=== PATIENT | male | born 1975 | race Caucasian/White ===

== ENCOUNTER → 2021-07-19 | Day surgery (SDC) | payer OTHER ==
[~2021-07-19] VITALS: Ht 177.8 cm; Wt 77.1 kg
[~2021-07-19] MED LIST: CENTRUM ADULTS1 EACH PO; CREATINE 50005000 MG PO; IBU400 MG PO; MAG-OXIDE 400M400 MG PO; NORCO 5-325 TA1 EACH PO; ONDANSETRON ODT8 MG PO; VITAMIN D325 MC1 PO
[2021-07-19 10:15] LABS: HCT 38.5 % (42.0-52.0); HGB 13.3 g/dl (13.2-18.0); MCH 31.3 pg (25.0-31.0); MCHC 34.5 g/dL (32.0-36.0); MCV 90.6 fL (78.0-100.0); MPV 9.5 fL (6.0-9.5); RBC 4.25 M/uL (4.70-6.00); RDW 12.1 % (11.5-14.0); WBC 4.9 K/uL (4.0-10.5)
[2021-07-19 10:46] LABS: ALBUMIN 3.9 g/dL (3.4-5.0); BILIRUBIN - TOTAL 0.5 mg/dL (0.2-1.0); BUN/CREAT RATIO (CALC) 29.9 RATIO; CREATININE 0.97 mg/dL (0.67-1.17); GLOBULIN (CALCULATION) 3.7 g/dL; POTASSIUM 3.7 mmol/L (3.5-5.1); TOTAL PROTEIN 7.6 g/dL (6.4-8.2)
== END | disposition home or self-care (01) ==
LOC: FAS 08:30
PROVIDERS: Surgery
DX: K40.90 Unilateral inguinal hernia, without obstruction or gangrene, not specified as recurrent (principal); Z88.0 Allergy status to penicillin
CPT/HCPCS: 36415; 80053; C1781; J0690; J1100; J1170; J2250; J2405; J2704; J3010; J7120